=== PATIENT | female | born 1970 | race Native Hawaiian/Other Pacific Islander ===

== ENCOUNTER 2020-05-16 20:29 | Emergency (ER) | payer BC ==
[~2020-05-16] VITALS: Ht 162.6 cm; Wt 77.1 kg
[~2020-05-16 20:29] MED LIST: AMBIEN5 MG PO
[2020-05-16 21:16] LABS: PLATELET COUNT 297 K/uL (152-353)
[2020-05-16 21:28] LABS: POTASSIUM 4.1 mmol/L (3.6-5.2); SODIUM 137 mmol/L (136-145)
[2020-05-16 22:53] VITALS: BP 135/63; TEMP 98.7
== END 2020-05-16 22:53 | disposition home or self-care (01) ==
LOC: ED 20:29
PROVIDERS: Emergency Medicine Emergency Medical Services
DX: R00.2 Palpitations (principal)
CPT/HCPCS: 36415; 80053; 84484; 85027; 93005; 96360; 96375; 99284; J2060

== ENCOUNTER 2020-08-24 10:24 | Outpatient (CLI) | payer BC | END 2020-08-24 22:01 | disposition home or self-care (01) | LOC: RAD 10:24 | PROVIDERS: ATTEND Nurse Practitioner Family | DX: M25.572 Pain in left ankle and joints of left foot (principal) ==

== ENCOUNTER 2020-09-07 22:10 | Emergency (ER) | payer BC ==
[~2020-09-07] VITALS: Ht 162.6 cm; Wt 77.1 kg
[2020-09-07 23:03] LABS: PLATELET COUNT 234 K/uL (152-353)
[2020-09-07 23:13] LABS: SODIUM 138 mmol/L (136-145)
[2020-09-08 00:04] VITALS: BP 118/71; TEMP 98.9
== END 2020-09-08 00:04 | disposition home or self-care (01) ==
LOC: ED 22:21
PROVIDERS: Family Medicine
DX: R00.0 Tachycardia, unspecified (principal)
CPT/HCPCS: 36415; 80053; 82550; 82553; 84484; 85027; 93005; 99283

== ENCOUNTER 2020-11-01 10:44 | Outpatient (CLI) | payer BC ==
[2020-11-01 11:19] LABS: PLATELET COUNT 253 K/uL (152-353)
[2020-11-01 11:34] LABS: POTASSIUM 3.9 mmol/L (3.6-5.2)
== END 2020-11-01 23:35 | disposition home or self-care (01) ==
LOC: RAD 10:44
PROVIDERS: ATTEND Nurse Practitioner Family
DX: R51.9 Headache, unspecified (principal); R43.1 Parosmia; I49.9 Cardiac arrhythmia, unspecified; E03.9 Hypothyroidism, unspecified
CPT/HCPCS: 36415; 80053; 84439; 84443; 84481; 85027; 85379; 85652; 86140

== ENCOUNTER 2021-06-14 19:35 | Outpatient (CLI) | payer BC ==
[2021-06-14 19:56] LABS: PLATELET COUNT 291 K/uL (152-353)
[2021-06-14 20:40] LABS: POTASSIUM 3.8 mmol/L (3.6-5.2)
== END 2021-06-14 21:11 | disposition home or self-care (01) ==
LOC: LABW 19:35
PROVIDERS: ATTEND Nurse Practitioner Family
DX: E03.9 Hypothyroidism, unspecified (principal); R00.0 Tachycardia, unspecified; E66.9 Obesity, unspecified; R53.83 Other fatigue
CPT/HCPCS: 36415; 80053; 80061; 81000; 82607; 82728; 82746; 83540; 83735; 84439; 84443; 84481; 85027

== ENCOUNTER 2021-12-03 07:22 | Emergency (ER) | payer BC ==
[~2021-12-03] VITALS: Ht 162.6 cm; Wt 77.1 kg
[2021-12-03 07:26] VITALS: BP 144/86; TEMP 98.5
== END 2021-12-03 07:57 | disposition home or self-care (01) ==
LOC: ED 07:22
DX: L02.412 Cutaneous abscess of left axilla (principal); N61.1 Abscess of the breast and nipple
CPT/HCPCS: 99282

== ENCOUNTER 2022-02-12 17:38 | Emergency (ER) | payer BC ==
[~2022-02-12] VITALS: Ht 162.6 cm; Wt 77.1 kg
[2022-02-12 18:11] LABS: PLATELET COUNT 279 K/uL (152-353)
[2022-02-12 18:24] LABS: POTASSIUM 4.3 mmol/L (3.6-5.2); SODIUM 133 mmol/L (136-145)
[2022-02-12 19:25] VITALS: BP 122/75; TEMP 98.2
== END 2022-02-12 19:25 | disposition home or self-care (01) ==
LOC: ED 17:38
PROVIDERS: Emergency Medicine
DX: R00.2 Palpitations (principal); F41.8 Other specified anxiety disorders; E03.8 Other specified hypothyroidism
CPT/HCPCS: 36415; 80053; 83735; 84443; 84484; 85027; 85379; 93005; 96374; 99284; J2060

== ENCOUNTER 2022-02-15 03:13 | Outpatient (CLI) | payer BC | END 2022-02-15 19:27 | disposition home or self-care (01) | LOC: LABW 03:13 | PROVIDERS: ATTEND Nurse Practitioner Family | DX: E03.8 Other specified hypothyroidism (principal); E78.2 Mixed hyperlipidemia | CPT/HCPCS: 36415; 80061; 81002; 84439; 84481 ==